=== PATIENT | female | born 1940 | race Caucasian/White ===

== ENCOUNTER → 2022-03-09 11:33 | Outpatient (REF) | payer OTHER, SELFPAY | LOC: RAD 11:33 | PROVIDERS: ATTENDING PHYSICIAN Family Medicine | DX: S02.92XA Unspecified fracture of facial bones, initial encounter for closed fracture (principal) | CPT/HCPCS: 70150; 70160; 73564 ==

== ENCOUNTER → 2023-05-01 08:02 | Outpatient (REF) | payer OTHER, SELFPAY | LOC: RAD 08:02 | PROVIDERS: ATTENDING PHYSICIAN Family Medicine | DX: R10.84 Generalized abdominal pain (principal) | CPT/HCPCS: 74176 ==

== ENCOUNTER → 2023-08-19 16:09 | Outpatient (REF) | payer OTHER, SELFPAY | LOC: RAD 16:09 | PROVIDERS: ATTENDING PHYSICIAN Family Medicine | DX: R22.42 Localized swelling, mass and lump, left lower limb (principal) | CPT/HCPCS: 93971 ==

== ENCOUNTER → 2023-09-16 07:38 | Outpatient (REF) | payer OTHER, SELFPAY | LOC: DHCBC/DCA 07:38 | PROVIDERS: ATTENDING PHYSICIAN Physician Assistant; FAMILY PHYSICIAN Family Medicine | DX: R06.02 Shortness of breath (principal); R00.2 Palpitations; R07.9 Chest pain, unspecified; I10 Essential (primary) hypertension; E78.00 Pure hypercholesterolemia, unspecified; I82.451 Acute embolism and thrombosis of right peroneal vein | CPT/HCPCS: 78452; 93017; A9500; J2785 ==

== ENCOUNTER → 2024-01-25 11:10 | Outpatient (REF) | payer OTHER, SELFPAY | LOC: PAVMRI 11:10 | PROVIDERS: ATTENDING PHYSICIAN Specialist; FAMILY PHYSICIAN Family Medicine | DX: M48.062 Spinal stenosis, lumbar region with neurogenic claudication (principal) | CPT/HCPCS: 72148 ==

== ENCOUNTER 2024-03-22 16:49 | Emergency (ER) | payer OTHER, SELFPAY ==
[2024-03-22 16:52] VITALS: BP 145/80
--- NOTE | 2024-03-22 19:03 | ED.MUSCINJ ---
HPI-Injury
General
Chief Complaint: Fall
Source: patient
Exam Limitations: none
Time Seen by Provider: 03/22/24 18:40
History of Present Illness-Injury
Initial Injury comments:
84-year-old female presents with laceration to right knee she sustained today. She has a history of falling. She fell today after getting off the couch. She did not hit her head. She is on Eliquis. Last tetanus unknown. No other complaints at
this time
Past History
Past History
ED Past Medical History: COPD, HTN and Hypercholesterolemia
ED Past Surgical History: Appendectomy and Cholecystectomy
Social History
Tobacco: Non-smoker
Alcohol: None
Drug: None
Personal: Single
Living: with family
Employment: Not employed
Phy Exam
Physical Exam
Physical Exam:
General: Well-appearing female no acute respiratory distress
HEENT normocephalic no signs of trauma neurologic:
Alert and oriented no facial asymmetry good strength
Musculoskeletal exam. Right knee without deformity able to straight leg raise against gravity. Laceration noted over the anterior aspect of the right knee. It appears as though the anterior surface of the patella is visible. No obvious
disruption of the joint lining
Injury Course
Orders/Labs/Results
Orders:
Orders
03/22/24 18:12
Knee, Right 4 or More Views [CR Knee- Right 4 Or More View*] Urgent
Comment:
Reason For Exam: injury
03/22/24 19:08
Tetanus/Diphth/Acelpertussis [Adacel] 0.5 ml IM .ONCE ONE
03/22/24 20:38
Cephalexin Monohydrate [Keflex] 500 mg PO NOW STA
MDM/Problems Addressed
Differential Diagnosis Includes:
Fall with right knee laceration. Question possible joint involvement. X-rays pending. If no air in the joint and x-ray will irrigate the wound and closed the skin
*Critical Care Note
Total Time (30-74mins, 75-104mins- exclusive of procedures): Not Applicable
Update Note
Update Note:
X-rays negative for acute finding or evidence of involvement of the joint. The wound was copiously irrigated with saline anesthetized with 1% lidocaine and closed with 4-0 Prolene. A running suture was performed with a total of 20 sutures.
Antibacterial Emon and a gauze wrap was applied patient started on Keflex secondary to the depth of the wound. Stable for discharge with follow-up with family doctor in 14 days for suture removal
ED Attending Note
-
Portions of this chart may have been created with voice recognition software.� Occasional wrong word or��sound alike� substitutions may have occurred due to the inherent limitations of voice recognition software.
Discharge Plan
Departure
Patient Disposition: Home (Routine Discharge)
Date of Disposition: 03/22/24
Time of Disposition: 20:40
Patient with high blood pressure during this ER visit?: No
Discharge Problem:
Laceration
Instructions: Laceration Repair With Stitches (DC)
Prescriptions:
New
cephalexin 500 mg capsule
500 mg PO Q6H 7 Days Qty: 28 0RF
No Action
Xarelto DVT-PE Treat 30d Start 15 mg (42)- 20 mg (9) tablets,dose pack
See Rx Instructions .ROUTE .COMPLEX Qty: 51 0RF
Rx Instructions:
TAKE DIRECTED, 15 MG TWICE A DAY FOR 21 DAYS FOLLOWED BY 20 MG ONCE A DAY
Referrals:
Joshua Braden MD [Family Provider] -
Activity Restrictions/Additional Instructions:
Keep clean. Take antibiotic as directed to change dressing as needed. Have sutures removed in 14 days
Interventions
Interventions:
ED-Musculoskeletal Assessment Last Done: 03/22/24 18:12
ED- Neurological Assessment Last Done: 03/22/24 18:12
ED-Skin Assessment Last Done: 03/22/24 18:12
Discharge Date and Time
Print Language: GEORGIAN
[2024-03-22] MEDS: ADACEL 0.5 ML IM (20:07)
[2024-03-22] MEDS: KEFLEX 500 MG PO (20:47)
[2024-03-22 21:07] VITALS: BP 140/82
== END 2024-03-22 21:10 | disposition home or self-care (01) ==
LOC: EMR 16:49
PROVIDERS: EMERGENCY PHYSICIAN Emergency Medicine; FAMILY PHYSICIAN Family Medicine
DX: S81.011A Laceration without foreign body, right knee, initial encounter (principal); W08.XXXA Fall from other furniture, initial encounter; Z23 Encounter for immunization; Z79.01 Long term (current) use of anticoagulants; J44.9 Chronic obstructive pulmonary disease, unspecified; I10 Essential (primary) hypertension; E78.00 Pure hypercholesterolemia, unspecified; Z90.49 Acquired absence of other specified parts of digestive tract
CPT/HCPCS: 99283; 12001; 90471; 73564; 90715

== ENCOUNTER → 2024-05-22 13:58 | Outpatient (REF) | payer OTHER, SELFPAY ==
[2024-05-22 11:26] LABS: % Basophils 0.4 % (0-2); % Lymphocytes 25.6 % (20.5-51.1); % Monocytes 11.9 % (1.7-9.3); % Neutrophils 58.1 % (42.2-75.2); Absolute Eosinophils 0.2 10^3/uL (0-0.7); Absolute Lymphocytes 1.2 10^3/uL (1.2-3.4); Absolute Monocytes 0.5 10^3/uL (0.1-0.6); Absolute Neutrophils 2.6 10^3/uL (1.4-6.5); Hematocrit 40.4 % (37.0-47.0); Hemoglobin 13.3 g/dL (12.0-16.0); Mean Corp Hgb Conc. 32.9 g/dL (33.0-37.0); Mean Corpuscular Volume 88.2 fL (81.0-99.0); Mean Platelet Volume 10.1 fL (7.4-10.4); Platelet Count 170 10^3/uL (130-400); Red Blood Cell Count 4.58 10^6/uL (4.20-5.40); Red Cell Dist. Width 13.1 % (11.5-14.5); White Blood Cell Count 4.5 10^3/uL (4.8-10.8)
== END ==
LOC: OIDL 13:58
PROVIDERS: ATTENDING PHYSICIAN Internal Medicine Hematology & Oncology
DX: I82.401 Acute embolism and thrombosis of unspecified deep veins of right lower extremity (principal); D50.0 Iron deficiency anemia secondary to blood loss (chronic)
CPT/HCPCS: 85025